=== PATIENT | male | born 1940 | race Caucasian/White ===

== ENCOUNTER → 2017-09-06 | Day surgery (SDC) | payer MEDICARE, BC, SELFPAY | END | disposition home or self-care (01) | PROVIDERS: Family Provider Internal Medicine; PCP Internal Medicine; Visit Provider Ophthalmology | DX: H25.11 Age-related nuclear cataract, right eye (principal) | CPT/HCPCS: J2250; J3010 ==

== ENCOUNTER → 2017-10-25 09:53 | Outpatient (CLI) | payer MEDICARE, BC, SELFPAY ==
[2017-10-25 10:52] LABS: Alanine Aminotransferase 42 IU/L (21-72); Albumin 4.1 g/dL (3.5-5.0); Albumin Globulin Ratio 1.6 (1.0-2.8); Alkaline Phosphatase 81 U/L (38-126); Aspartate Aminotransferase 34 IU/L (17-59); BUN Creatinine Ratio 22.9 (6-22); Bilirubin Total 0.9 mg/dL (0.2-1.3); Blood Urea Nitrogen 16 mg/dL (9-20); Calcium 8.9 mg/dL (8.4-10.2); Carbon Dioxide 26 mmol/L (22-32); Chloride 104 mmol/L (98-107); Cholesterol 133 mg/dL (140-199); Estimated Glomerular Filt Rate > 60.0 mL/min (>60); Globulin 2.5 g/dL (1.7-4.1); Glucose 105 mg/dL (80-110); HDL Cholesterol 49 mg/dL (40-60); HEMOLYSIS 39 (0-50); LDL Cholesterol Calculated 71 mg/dL (<100); Potassium 4.2 mmol/L (3.4-5.1); Sodium 140 mmol/L (137-145); Total Protein 6.6 g/dL (6.3-8.2); Triglycerides 65 mg/dL (35-150)
== END ==
PROVIDERS: PCP Internal Medicine; Visit Provider Internal Medicine Cardiovascular Disease
DX: I25.10 Atherosclerotic heart disease of native coronary artery without angina pectoris (principal)
CPT/HCPCS: 36415; 80053; 80061

== ENCOUNTER 2018-01-13 10:39 | Emergency (ER) | payer MEDICARE, BC, SELFPAY ==
[2018-01-13 10:56] VITALS: BP 151/82; PULSE 60; RESP 15; TEMP 36.7; O2SAT 100; BMI 27.0
--- NOTE | 2018-01-13 11:07 | DI.RAD.S_ITS ---
PROCEDURE: XR CHEST 1V INDICATIONS: chest pain TECHNIQUE: One view of the chest was acquired. COMPARISON: [facility], , CHEST 1 VIEW, 06/23/2017, 14:42. FINDINGS: Surgical changes and devices: None. Lungs and pleura: No pleural effusions or pneumothorax. No focal airspace opacities. Mediastinum: Mediastinal contours appear normal. Heart size is normal. Bones and chest wall: No suspicious bony lesions. Overlying soft tissues appear unremarkable. IMPRESSION: No acute cardiopulmonary disease. Dictated by: Nelson Gould M.D. on 01/13/2018 at 11:44 Approved by: Nelson Gould M.D. on 01/13/2018 at 11:45
[2018-01-13 11:18] LABS: Add Manual Diff / Slide Review NO; Basophils Percent Auto 0.7 % (0-2); Hematocrit 45.4 % (41-53); Hemoglobin 15.6 g/dL (13.5-17.5); Lymphocytes Percent Auto 17.3 % (25-40); Mean Corpuscular HGB Conc 34.4 % (30-36); Mean Corpuscular Hemoglobin 31.5 PG (26-34); Mean Corpuscular Volume 91.3 fL (80-100); Monocytes Percent Auto 10.7 % (3-14); Neutrophils Absolute Auto 3600 /uL (3000-5900); Neutrophils Percent Auto 70.3 % (50-75); Platelet Count 222 X10^3/uL (150-400); Red Blood Cell Count 4.98 X10^6/uL (4.5-5.9); Red Cell Distribution Width 13.4 % (11.6-14.8); White Blood Cell Count 5.1 X10^3/uL (4.5-11.0)
[2018-01-13 11:22] LABS: Prothrombin Time 10.8 SECONDS (10.1-12.7)
[2018-01-13 11:25] LABS: PTT Partial Thromboplastin Tim 27 SECONDS (26.4-36.2)
[2018-01-13 11:29] LABS: Alanine Aminotransferase 39 IU/L (21-72); Albumin 4.3 g/dL (3.5-5.0); Albumin Globulin Ratio 1.8 (1.0-2.8); Alkaline Phosphatase 84 U/L (38-126); Aspartate Aminotransferase 64 IU/L (17-59); BUN Creatinine Ratio 15.6 (6-22); Blood Urea Nitrogen 14 mg/dL (9-20); Calcium 9.2 mg/dL (8.4-10.2); Carbon Dioxide 30 mmol/L (22-32); Chloride 105 mmol/L (98-107); Creatine Kinase 82 U/L (55-170); Estimated Glomerular Filt Rate > 60.0 mL/min (>60); Globulin 2.4 g/dL (1.7-4.1); Glucose 108 mg/dL (80-110); HEMOLYSIS 24 (0-50); Lipase 131 U/L (23-300); Potassium 4.1 mmol/L (3.4-5.1); Sodium 142 mmol/L (137-145); Total Protein 6.7 g/dL (6.3-8.2)
--- NOTE | 2018-01-13 11:29 | ED.CHESTPAIN ---
HPI - Chest Pain General Chief Complaint: Chest Pain Stated Complaint: CHEST PAINS, TIGHTNESS, LIGHT HEADED Time Seen by Provider: 01/13/18 10:58 Source: patient Mode of arrival: ambulatory Limitations: no limitations History of Present Illness HPI narrative: Patient is a 77-year-old male presents with right-sided chest pain ongoing for a number of weeks. Started once he got Lacey 3 weeks ago. His mostly on the right side sharp burning of comes and goes. Not associated with any exertion. He that now is starting to feel a on his left side as well. He does have a history of a stent. He occasionally gets short of breath and lightheaded when the pain comes. Comes about 6 times a day. Not passed out. Does not currently have pain. MD complaint: chest pain Onset (ago): week(s) (3-4) Related Data Home Medications Medication Instructions Recorded Confirmed acetaminophen [Tylenol Extra 500 mg PO Q6HP PRN #0 12/28/16 Strength] aspirin 81 mg PO QPM #0 12/28/16 ibuprofen 200 mg PO Q6HP PRN #0 12/28/16 simvastatin [Zocor] 20 mg PO HS #0 12/28/16 cholecalciferol (vitamin D3) 2,000 unit PO QDAY #0 06/23/17 [Vitamin D3] coenzyme Q10 [Co Q-10] 100 mg PO QDAY #0 06/23/17 cyanocobalamin (vitamin B-12) 5,000 mcg PO QDAY #0 06/23/17 diphenhydramine HCl [Benadryl 25 mg PO PRN PRN #0 06/23/17 Allergy] multivitamin [Multiple Vitamins] 1 tab PO QDAY #0 06/23/17 atorvastatin [Lipitor] 80 mg PO QDAY #0 09/06/17 clopidogrel 75 mg PO QDAY #0 09/06/17 10/04/17 loratadine [Claritin Liqui-Gel] 10 mg PO QDAYP PRN #0 09/06/17 metoprolol tartrate 12.5 mg PO BID #0 09/06/17 vitamin B complex [B 1 tab PO QDAY #0 09/06/17 10/04/17 Complex-Vitamin B12] Allergies Allergy/AdvReac Type Severity Reaction Status Date / Time No Known Allergies Allergy Verified 01/13/18 10:56 Review of Systems Review of Systems All systems reviewed & are unremarkable except as noted in HPI and below Constitutional Denies chills, Denies fever(s), Denies lethargy and Denies weakness Cardiovascular Reports as per HPI Respiratory Reports as per HPI Gastrointestinal Gastrointestinal: Denies abdominal pain, Denies change in bowel habits, Denies diarrhea, Denies nausea and Denies vomiting Musculoskeletal Denies back pain, Denies muscle weakness, Denies numbness and Denies tingling Integumentary/Breasts Denies pruritus, Denies erythema, Denies rash and Denies wounds Neurologic Denies numbness, Denies tingling and Denies weakness PFSH Medical History Coronary artery disease (Acute) Hyperlipidemia (Acute) Hypertension (Acute) Social History household members: spouse Exam Initial Vital Signs Initial Vital Signs: Vital Signs Temperature 98.1 F 01/13/18 10:56 Pulse Rate 60 01/13/18 10:56 Respiratory Rate 15 01/13/18 10:56 Blood Pressure 151/82 H 01/13/18 10:56 Pulse Oximetry 100 01/13/18 10:56 GENERAL: Well-appearing, well-nourished and in no acute distress. HEENT: Head atraumatic,EOMI, pupils reactive, face symmetric next CARDIOVASCULAR: Regular rate and rhythm without murmurs, rubs or gallops. RESPIRATORY: Breath sounds equal bilaterally, no wheezes rales or rhonchi. ABDOMEN: Soft, nontender. Normoactive bowel sounds all 4 quadrants. No guarding or rebound. EXTREMITIES: Normal range of motion, no clubbing or edema. Neurovascularly intact NEUROLOGICAL: Alert and oriented x4.Normal gait and speech. Cranial nerves II through XII grossly intact. Good [id number], good [id number], strength equal bilaterally, no dysarthria or aphasia, sensation in tact to soft touch bilaterally, no visual changes, no facial droop SKIN: Warm, dry, no laceration, no petechiae, no rashes or lesions. Course Orders Ordered: ED Orders 01/13/18 11:00 Complete Blood Count AUTO DIFF Stat Comprehensive Metabolic Panel Stat D Dimer Stat Lipase Stat Partial Thromboplastin Time Stat Prothrombin Time INR Stat Troponin & CK Cardiac Panel Stat 01/13/18 11:07 XR chest 1V Stat EKG-12 Lead Stat Discontinued Medications Aspirin (Aspirin Chew) 324 mg PO NOW ONE Stop: 01/13/18 11:08 Last Admin: 01/13/18 11:50 Dose: 324 mg Sodium Chloride (Normal Saline 0.9%) 1,000 mls @ 150 mls/hr IV CONT RYLIE Last Admin: 01/13/18 11:50 Dose: 150 mls/hr Sodium Chloride (Normal Saline 0.9%) 1,000 mls @ 150 mls/hr IV CONT RYLIE Vital Signs - 8 hr 01/13/18 13:00 01/13/18 13:35 01/13/18 13:58 Temperature 97.6 F Pulse Rate 55 L 55 L 58 L Respiratory Rate 10 L 11 L 17 Blood Pressure 126/65 Blood Pressure [Left Arm] 136/64 126/65 Pulse Oximetry 100 100 99 MDM - Chest Pain Lab Data Attestation: I reviewed the patient's lab results. Result diagrams: 01/13/18 11:00 01/13/18 11:00 Lab Results 01/13/18 01/13/18 01/13/18 Range/Units 11:00 11:00 11:00 WBC 5.1 (4.5-11.0) X10^3/uL RBC 4.98 (4.5-5.9) X10^6/uL Hgb 15.6 (13.5-17.5) g/dL Hct 45.4 (41-53) % MCV 91.3 (80-100) fL MCH 31.5 (26-34) PG MCHC 34.4 (30-36) % RDW 13.4 (11.6-14.8) % Plt Count 222 (150-400) X10^3/uL Neut % (Auto) 70.3 (50-75) % Lymph % (Auto) 17.3 L (25-40) % [place] % (Auto) 10.7 (3-14) % Eos % (Auto) 1.0 L (2-4) % Baso % (Auto) 0.7 (0-2) % Neut # (Auto) 3600 (2267-0460) /uL PT 10.8 (10.1-12.7) SECONDS INR 1.0 (0.9-1.3) APTT 27 (26.4-36.2) SECONDS D-Dimer (<230) ng/mL Sodium 142 (137-145) mmol/L Potassium 4.1 (3.4-5.1) mmol/L Chloride 105 (98-107) mmol/L Carbon Dioxide 30 (22-32) mmol/L BUN 14 (9-20) mg/dL Creatinine 0.90 (0.66-1.25) mg/dL Estimated GFR > 60.0 (>60) mL/min BUN/Creatinine Ratio 15.6 (6-22) Glucose 108 (80-110) mg/dL Calcium 9.2 (8.4-10.2) mg/dL Total Bilirubin 1.0 (0.2-1.3) mg/dL AST 64 H (17-59) IU/L ALT 39 (21-72) IU/L Alkaline Phosphatase 84 (38-126) U/L Total Creatine Kinase 82 (55-170) U/L Troponin I < 0.012 (0.01-0.034) ng/mL Total Protein 6.7 (6.3-8.2) g/dL Albumin 4.3 (3.5-5.0) g/dL Globulin 2.4 (1.7-4.1) g/dL Albumin/Globulin Ratio 1.8 (1.0-2.8) Lipase 131 (23-300) U/L 01/13/18 Range/Units 11:00 WBC (4.5-11.0) X10^3/uL RBC (4.5-5.9) X10^6/uL Hgb (13.5-17.5) g/dL Hct (41-53) % MCV (80-100) fL MCH (26-34) PG MCHC (30-36) % RDW (11.6-14.8) % Plt Count (150-400) X10^3/uL Neut % (Auto) (50-75) % Lymph % (Auto) (25-40) % [place] % (Auto) (3-14) % Eos % (Auto) (2-4) % Baso % (Auto) (0-2) % Neut # (Auto) (9359-9234) /uL PT (10.1-12.7) SECONDS INR (0.9-1.3) APTT (26.4-36.2) SECONDS D-Dimer 257 H (<230) ng/mL Sodium (137-145) mmol/L Potassium (3.4-5.1) mmol/L Chloride (98-107) mmol/L Carbon Dioxide (22-32) mmol/L BUN (9-20) mg/dL Creatinine (0.66-1.25) mg/dL Estimated GFR (>60) mL/min BUN/Creatinine Ratio (6-22) Glucose (80-110) mg/dL Calcium (8.4-10.2) mg/dL Total Bilirubin (0.2-1.3) mg/dL AST (17-59) IU/L ALT (21-72) IU/L Alkaline Phosphatase (38-126) U/L Total Creatine Kinase (55-170) U/L Troponin I (0.01-0.034) ng/mL Total Protein (6.3-8.2) g/dL Albumin (3.5-5.0) g/dL Globulin (1.7-4.1) g/dL Albumin/Globulin Ratio (1.0-2.8) Lipase (23-300) U/L Imaging Data Chest x-ray: Radiologist's impression: PROCEDURE: XR CHEST 1V INDICATIONS: chest pain TECHNIQUE: One view of the chest was acquired. COMPARISON: [facility], CHEST 1 VIEW, 06/23/2017, 14:42. FINDINGS: Surgical changes and devices: None. Lungs and pleura: No pleural effusions or pneumothorax. No focal airspace opacities. Mediastinum: Mediastinal contours appear normal. Heart size is normal. Bones and chest wall: No suspicious bony lesions. Overlying soft tissues appear unremarkable. IMPRESSION: No acute cardiopulmonary disease. Dictated by: Nelson Gould M.D. on 01/13/2018 at 11:44 ECG Data Interpretation: Normal sinus rhythm his rate [address] changes similar to previous EKG in June 2017 MDM Narrative Medical decision making narrative: I discussed case with patient's own gm video. Patient has been having ongoing pain off and on for the last month. Questionable if it is cardiac at on the right side on nonexertional or radiating. Troponin negative. Patient's D-dimer is also negative he is not hypoxic. Although he had a airplane ride I do not believe him to have a PE. Patient with follow-up with his gm video. Discharge Plan Departure Patient Disposition: Home Clinical Impression: Atypical chest pain Discharge Date/Time: 01/13/18 14:00 Interventions: ED Discharge Assessment Last Done: 01/13/18 13:58 Instructions: DI for Atypical Chest Pain Activity Restrictions/Additional Instructions: *You have been diagnosed with atypical chest *What to do: Need to follow up with her gm video for possible further evaluation and testing *Continue to take medications as directed *Follow up with your primary care provider in 2-3 days, follow up with your gm video in 1-2 weeks *Return to ER if you should have any new, worsening or concerning symptoms Prescriptions: No Action aspirin 81 MG tablet,delayed release (DR/EC) 81 mg PO QPM Qty: 0 RF: 0 simvastatin [Zocor] 20 MG tablet 20 mg PO HS Qty: 0 RF: 0 ibuprofen 200 MG capsule 200 mg PO Q6HP PRNQty: 0 RF: 0 acetaminophen [Tylenol Extra Strength] 500 MG tablet 500 mg PO Q6HP PRNQty: 0 RF: 0 diphenhydramine HCl [Benadryl Allergy] 25 MG tablet 25 mg PO PRN PRNQty: 0 RF: 0 coenzyme Q10 [Co Q-10] 100 MG capsule 100 mg PO QDAY Qty: 0 RF: 0 cyanocobalamin (vitamin B-12) 5,000 MCG tablet,disintegrating 5,000 mcg PO QDAY Qty: 0 RF: 0 multivitamin [Multiple Vitamins] 1 EACH tablet 1 tab PO QDAY Qty: 0 RF: 0 cholecalciferol (vitamin D3) [Vitamin D3] 2,000 UNIT capsule 2,000 unit PO QDAY Qty: 0 RF: 0 metoprolol tartrate 25 MG tablet 12.5 mg PO BID Qty: 0 RF: 0 atorvastatin [Lipitor] 80 MG tablet 80 mg PO QDAY Qty: 0 RF: 0 clopidogrel 75 MG tablet 75 mg PO QDAY Qty: 0 RF: 0 loratadine [Claritin Liqui-Gel] 10 MG capsule 10 mg PO QDAYP PRNQty: 0 RF: 0 vitamin B complex [B Complex-Vitamin B12] 1 EACH tablet 1 tab PO QDAY Qty: 0 RF: 0
[2018-01-13 11:41] LABS: Troponin I < 0.012 ng/mL (0.01-0.034)
--- NOTE | 2018-01-13 11:41 | ED_ITS ---
HPI - Chest Pain General Chief Complaint: Chest Pain Stated Complaint: CHEST PAINS, TIGHTNESS, LIGHT HEADED Time Seen by Provider: 01/13/18 10:58 Source: patient Mode of arrival: ambulatory Limitations: no limitations History of Present Illness HPI narrative: Patient is a 77-year-old male presents with right-sided chest pain ongoing for a number of weeks. Started once he got Lacey 3 weeks ago. His mostly on the right side sharp burning of comes and goes. Not associated with any exertion. He that now is starting to feel a on his left side as well. He does have a history of a stent. He occasionally gets short of breath and lightheaded when the pain comes. Comes about 6 times a day. Not passed out. Does not currently have pain. MD complaint: chest pain Onset (ago): week(s) (3-4) Related Data Home Medications Medication Instructions Recorded Confirmed acetaminophen [Tylenol Extra 500 mg PO Q6HP PRN #0 12/28/16 Strength] aspirin 81 mg PO QPM #0 12/28/16 ibuprofen 200 mg PO Q6HP PRN #0 12/28/16 simvastatin [Zocor] 20 mg PO HS #0 12/28/16 cholecalciferol (vitamin D3) 2,000 unit PO QDAY #0 06/23/17 [Vitamin D3] coenzyme Q10 [Co Q-10] 100 mg PO QDAY #0 06/23/17 cyanocobalamin (vitamin B-12) 5,000 mcg PO QDAY #0 06/23/17 diphenhydramine HCl [Benadryl 25 mg PO PRN PRN #0 06/23/17 Allergy] multivitamin [Multiple Vitamins] 1 tab PO QDAY #0 06/23/17 atorvastatin [Lipitor] 80 mg PO QDAY #0 09/06/17 clopidogrel 75 mg PO QDAY #0 09/06/17 10/04/17 loratadine [Claritin Liqui-Gel] 10 mg PO QDAYP PRN #0 09/06/17 metoprolol tartrate 12.5 mg PO BID #0 09/06/17 vitamin B complex [B 1 tab PO QDAY #0 09/06/17 10/04/17 Complex-Vitamin B12] Allergies Allergy/AdvReac Type Severity Reaction Status Date / Time No Known Allergies Allergy Verified 01/13/18 10:56 Review of Systems Review of Systems All systems reviewed & are unremarkable except as noted in HPI and below Constitutional Denies chills, Denies fever(s), Denies lethargy and Denies weakness Cardiovascular Reports as per HPI Respiratory Reports as per HPI Gastrointestinal Gastrointestinal: Denies abdominal pain, Denies change in bowel habits, Denies diarrhea, Denies nausea and Denies vomiting Musculoskeletal Denies back pain, Denies muscle weakness, Denies numbness and Denies tingling Integumentary/Breasts Denies pruritus, Denies erythema, Denies rash and Denies wounds Neurologic Denies numbness, Denies tingling and Denies weakness PFSH Medical History Coronary artery disease (Acute) Hyperlipidemia (Acute) Hypertension (Acute) Social History household members: spouse Exam Initial Vital Signs Initial Vital Signs: Vital Signs Temperature 98.1 F 01/13/18 10:56 Pulse Rate 60 01/13/18 10:56 Respiratory Rate 15 01/13/18 10:56 Blood Pressure 151/82 H 01/13/18 10:56 Pulse Oximetry 100 01/13/18 10:56 GENERAL: Well-appearing, well-nourished and in no acute distress. HEENT: Head atraumatic,EOMI, pupils reactive, face symmetric next CARDIOVASCULAR: Regular rate and rhythm without murmurs, rubs or gallops. RESPIRATORY: Breath sounds equal bilaterally, no wheezes rales or rhonchi. ABDOMEN: Soft, nontender. Normoactive bowel sounds all 4 quadrants. No guarding or rebound. EXTREMITIES: Normal range of motion, no clubbing or edema. Neurovascularly intact NEUROLOGICAL: Alert and oriented x4.Normal gait and speech. Cranial nerves II through XII grossly intact. Good jdiwoo-ar-eius, good spvj-md-[id number], strength equal bilaterally, no dysarthria or aphasia, sensation in tact to soft touch bilaterally, no visual changes, no facial droop SKIN: Warm, dry, no laceration, no petechiae, no rashes or lesions. Course Orders Ordered: ED Orders 01/13/18 11:00 Complete Blood Count AUTO DIFF Stat Comprehensive Metabolic Panel Stat D Dimer Stat Lipase Stat Partial Thromboplastin Time Stat Prothrombin Time INR Stat Troponin & CK Cardiac Panel Stat 01/13/18 11:07 XR chest 1V Stat EKG-12 Lead Stat Discontinued Medications Aspirin (Aspirin Chew) 324 mg PO NOW ONE Stop: 01/13/18 11:08 Last Admin: 01/13/18 11:50 Dose: 324 mg Sodium Chloride (Normal Saline 0.9%) 1,000 mls @ 150 mls/hr IV CONT RYLIE Last Admin: 01/13/18 11:50 Dose: 150 mls/hr Sodium Chloride (Normal Saline 0.9%) 1,000 mls @ 150 mls/hr IV CONT RYLIE Vital Signs - 8 hr 01/13/18 13:00 01/13/18 13:35 01/13/18 13:58 Temperature 97.6 F Pulse Rate 55 L 55 L 58 L Respiratory Rate 10 L 11 L 17 Blood Pressure 126/65 Blood Pressure [Left Arm] 136/64 126/65 Pulse Oximetry 100 100 99 MDM - Chest Pain Lab Data Attestation: I reviewed the patient's lab results. Result diagrams: 01/13/18 11:00 01/13/18 11:00 Lab Results 01/13/18 01/13/18 01/13/18 Range/Units 11:00 11:00 11:00 WBC 5.1 (4.5-11.0) X10^3/uL RBC 4.98 (4.5-5.9) X10^6/uL Hgb 15.6 (13.5-17.5) g/dL Hct 45.4 (41-53) % MCV 91.3 (80-100) fL MCH 31.5 (26-34) PG MCHC 34.4 (30-36) % RDW 13.4 (11.6-14.8) % Plt Count 222 (150-400) X10^3/uL Neut % (Auto) 70.3 (50-75) % Lymph % (Auto) 17.3 L (25-40) % [place] % (Auto) 10.7 (3-14) % Eos % (Auto) 1.0 L (2-4) % Baso % (Auto) 0.7 (0-2) % Neut # (Auto) 3600 (6223-9398) /uL PT 10.8 (10.1-12.7) SECONDS INR 1.0 (0.9-1.3) APTT 27 (26.4-36.2) SECONDS D-Dimer (<230) ng/mL Sodium 142 (137-145) mmol/L Potassium 4.1 (3.4-5.1) mmol/L Chloride 105 (98-107) mmol/L Carbon Dioxide 30 (22-32) mmol/L BUN 14 (9-20) mg/dL Creatinine 0.90 (0.66-1.25) mg/dL Estimated GFR > 60.0 (>60) mL/min BUN/Creatinine Ratio 15.6 (6-22) Glucose 108 (80-110) mg/dL Calcium 9.2 (8.4-10.2) mg/dL Total Bilirubin 1.0 (0.2-1.3) mg/dL AST 64 H (17-59) IU/L ALT 39 (21-72) IU/L Alkaline Phosphatase 84 (38-126) U/L Total Creatine Kinase 82 (55-170) U/L Troponin I < 0.012 (0.01-0.034) ng/mL Total Protein 6.7 (6.3-8.2) g/dL Albumin 4.3 (3.5-5.0) g/dL Globulin 2.4 (1.7-4.1) g/dL Albumin/Globulin Ratio 1.8 (1.0-2.8) Lipase 131 (23-300) U/L 01/13/18 Range/Units 11:00 WBC (4.5-11.0) X10^3/uL RBC (4.5-5.9) X10^6/uL Hgb (13.5-17.5) g/dL Hct (41-53) % MCV (80-100) fL MCH (26-34) PG MCHC (30-36) % RDW (11.6-14.8) % Plt Count (150-400) X10^3/uL Neut % (Auto) (50-75) % Lymph % (Auto) (25-40) % [place] % (Auto) (3-14) % Eos % (Auto) (2-4) % Baso % (Auto) (0-2) % Neut # (Auto) (7315-3387) /uL PT (10.1-12.7) SECONDS INR (0.9-1.3) APTT (26.4-36.2) SECONDS D-Dimer 257 H (<230) ng/mL Sodium (137-145) mmol/L Potassium (3.4-5.1) mmol/L Chloride (98-107) mmol/L Carbon Dioxide (22-32) mmol/L BUN (9-20) mg/dL Creatinine (0.66-1.25) mg/dL Estimated GFR (>60) mL/min BUN/Creatinine Ratio (6-22) Glucose (80-110) mg/dL Calcium (8.4-10.2) mg/dL Total Bilirubin (0.2-1.3) mg/dL AST (17-59) IU/L ALT (21-72) IU/L Alkaline Phosphatase (38-126) U/L Total Creatine Kinase (55-170) U/L Troponin I (0.01-0.034) ng/mL Total Protein (6.3-8.2) g/dL Albumin (3.5-5.0) g/dL Globulin (1.7-4.1) g/dL Albumin/Globulin Ratio (1.0-2.8) Lipase (23-300) U/L Imaging Data Chest x-ray: Radiologist's impression: PROCEDURE: XR CHEST 1V INDICATIONS: chest pain TECHNIQUE: One view of the chest was acquired. COMPARISON: [facility], CHEST 1 VIEW, 06/23/2017, 14:42. FINDINGS: Surgical changes and devices: None. Lungs and pleura: No pleural effusions or pneumothorax. No focal airspace opacities. Mediastinum: Mediastinal contours appear normal. Heart size is normal. Bones and chest wall: No suspicious bony lesions. Overlying soft tissues appear unremarkable. IMPRESSION: No acute cardiopulmonary disease. Dictated by: Nelson Gould M.D. on 01/13/2018 at 11:44 ECG Data Interpretation: Normal sinus rhythm his rate [address] changes similar to previous EKG in June 2017 MDM Narrative Medical decision making narrative: I discussed case with patient's own market consultant. Patient has been having ongoing pain off and on for the last month. Questionable if it is cardiac at on the right side on nonexertional or radiating. Troponin negative. Patient's D-dimer is also negative he is not hypoxic. Although he had a airplane ride I do not believe him to have a PE. Patient with follow-up with his market consultant. Discharge Plan Departure Patient Disposition: Home Clinical Impression: Atypical chest pain Discharge Date/Time: 01/13/18 14:00 Interventions: ED Discharge Assessment Last Done: 01/13/18 13:58 Instructions: DI for Atypical Chest Pain Activity Restrictions/Additional Instructions: *You have been diagnosed with atypical chest *What to do: Need to follow up with her market consultant for possible further evaluation and testing *Continue to take medications as directed *Follow up with your primary care provider in 2-3 days, follow up with your market consultant in 1-2 weeks *Return to ER if you should have any new, worsening or concerning symptoms Prescriptions: No Action aspirin 81 MG tablet,delayed release (DR/EC) 81 mg PO QPM Qty: 0 RF: 0 simvastatin [Zocor] 20 MG tablet 20 mg PO HS Qty: 0 RF: 0 ibuprofen 200 MG capsule 200 mg PO Q6HP PRNQty: 0 RF: 0 acetaminophen [Tylenol Extra Strength] 500 MG tablet 500 mg PO Q6HP PRNQty: 0 RF: 0 diphenhydramine HCl [Benadryl Allergy] 25 MG tablet 25 mg PO PRN PRNQty: 0 RF: 0 coenzyme Q10 [Co Q-10] 100 MG capsule 100 mg PO QDAY Qty: 0 RF: 0 cyanocobalamin (vitamin B-12) 5,000 MCG tablet,disintegrating 5,000 mcg PO QDAY Qty: 0 RF: 0 multivitamin [Multiple Vitamins] 1 EACH tablet 1 tab PO QDAY Qty: 0 RF: 0 cholecalciferol (vitamin D3) [Vitamin D3] 2,000 UNIT capsule 2,000 unit PO QDAY Qty: 0 RF: 0 metoprolol tartrate 25 MG tablet 12.5 mg PO BID Qty: 0 RF: 0 atorvastatin [Lipitor] 80 MG tablet 80 mg PO QDAY Qty: 0 RF: 0 clopidogrel 75 MG tablet 75 mg PO QDAY Qty: 0 RF: 0 loratadine [Claritin Liqui-Gel] 10 MG capsule 10 mg PO QDAYP PRNQty: 0 RF: 0 vitamin B complex [B Complex-Vitamin B12] 1 EACH tablet 1 tab PO QDAY Qty: 0 RF: 0
[2018-01-13 11:44] LABS: D Dimer 257 ng/mL (<230)
[2018-01-13] MEDS: ASPIRIN 81 MG TAB 324 MG PO (11:50)
[2018-01-13] MEDS: SODIUM CHLORIDE 0.9% 1,000 ML 150 ML IV (11:50)
[2018-01-13 13:00] VITALS: BP 136/64; PULSE 55; RESP 10; O2SAT 100
[2018-01-13 13:35] VITALS: BP 126/65; PULSE 55; RESP 11; O2SAT 100
[2018-01-13 13:58] VITALS: BP 126/65; PULSE 58; RESP 17; TEMP 36.4; O2SAT 99
--- NOTE | 2018-02-05 01:21 | PC.NURSE ---
IV fluids stopped at discharge
== END 2018-01-13 14:00 | disposition home or self-care (01) ==
PROVIDERS: Emergency Provider Emergency Medicine; Family Provider Internal Medicine Cardiovascular Disease; PCP Internal Medicine
DX: R07.89 Other chest pain (principal)
CPT/HCPCS: 36591; 71045; 80053; 82550; 82553; 83690; 84484; 85025; 85379; 85610; 85730; 93005; 93010; 96360; 96361; 99282; 99285

== ENCOUNTER 2018-06-07 10:00 | Outpatient (RCR) | payer MEDICARE, BC, SELFPAY | END 2018-06-08 08:59 | LOC: CAR 10:00 | PROVIDERS: Family Provider Internal Medicine Cardiovascular Disease; PCP Internal Medicine; Visit Provider Internal Medicine Cardiovascular Disease | DX: I20.9 Angina pectoris, unspecified (principal) | CPT/HCPCS: 93798 ==

== ENCOUNTER → 2019-02-28 18:52 | Outpatient (ROUT) | payer MEDICARE, BC, SELFPAY ==
[2019-02-28 19:17] LABS: HEMOLYSIS < 15 (0-50)
[2019-02-28 19:22] LABS: Aspartate Aminotransferase 31 IU/L (17-59); BUN Creatinine Ratio 22.5 (6-22); Blood Urea Nitrogen 18 mg/dL (9-20); Calcium 9.5 mg/dL (8.4-10.2); Carbon Dioxide 26 mmol/L (22-32); Chloride 104 mmol/L (98-107); Cholesterol 126 mg/dL (140-199); Estimated Glomerular Filt Rate > 60.0 mL/min (>60); Glucose 100 mg/dL (80-110); HDL Cholesterol 58 mg/dL (40-60); LDL Cholesterol Calculated 55 mg/dL (<100); Potassium 4.4 mmol/L (3.4-5.1); Sodium 137 mmol/L (137-145); Triglycerides 63 mg/dL (35-150)
[2019-03-01 16:16] LABS: Prostate Specific Antigen 0.819 ng/mL (0.10-4.00)
== END ==
PROVIDERS: Family Provider Internal Medicine Cardiovascular Disease; PCP Internal Medicine; Visit Provider Internal Medicine
DX: I25.10 Atherosclerotic heart disease of native coronary artery without angina pectoris (principal); N40.0 Benign prostatic hyperplasia without lower urinary tract symptoms; E78.2 Mixed hyperlipidemia
CPT/HCPCS: 80048; 80061; 84153; 84450

== ENCOUNTER → 2019-12-08 13:34 | Outpatient (CLI) | payer MEDICARE, BC, SELFPAY ==
[2019-12-11 06:48] LABS: COVID19 Sendout Not Detected (Not Detect)
== END ==
PROVIDERS: Family Provider Internal Medicine Cardiovascular Disease; PCP Internal Medicine; Visit Provider Physician Assistant
DX: Z01.818 Encounter for other preprocedural examination (principal)
CPT/HCPCS: 87635

== ENCOUNTER 2019-12-11 10:29 | Day surgery (SDC) | payer MEDICARE, BC, SELFPAY ==
[2019-12-10 12:33] VITALS: BMI 27.6
[2019-12-11] VITALS (9 sets, daily range): BP systolic 140–157; BP diastolic 75–84; PULSE 16–84; RESP 10–67; TEMP 36.1–36.7; O2SAT 94–98; BMI 26.8
[2019-12-11] MEDS: LACTATED RINGERS 1,000 ML 100 ML IV ×2 (11:04→14:58)
--- NOTE | 2019-12-11 13:32 | PM.HP.1 ---
History of Present Illness History of Present Illness Date Patient Seen: 12/11/19 Time Patient Seen: 13:32 Chief complaint: Lap bilateral hernia Narrative: A 79-year-old male with a remote history of a bilateral open inguinal hernia repair presents for laparoscopic preperitoneal repair of recurrence bilateral inguinal hernias. Please see his H& P from July 2019 for further detail has been no interval changes in his health. Patient History Medical History Aortic stenosis (Acute) Coronary artery disease (Acute) Hx of coronary angiogram (Acute) Hx of fracture of tibia (Acute) Hyperlipidemia (Acute) Hypertension (Acute) Surgical History History of tonsillectomy and adenoidectomy (Acute) Hx of appendectomy (Acute) Hx of cataract surgery (Acute 10/04/17) Hx of heart artery stent (Acute 06/30/17) Hx of hernia repair (Acute 12/2016) Family & Social History Family History Father Heart disease Brother Heart disease Stroke Social History: household members spouse Tobacco & Substance use: Smoking Status Never smoker alcohol intake current alcohol intake frequency 0-2 drinks per day Substance Use Type does not use Meds Home Medications and Allergies Home Medications Medication Instructions Recorded Confirmed Type acetaminophen [Tylenol Extra 500 mg PO Q6HP PRN #0 12/28/16 12/11/19 History Strength] aspirin 81 mg PO QPM #0 12/28/16 12/11/19 History multivitamin [Multiple Vitamins] 1 tab PO QDAY #0 06/23/17 12/11/19 History atorvastatin [Lipitor] 80 mg PO QDAY #0 09/06/17 12/11/19 History clopidogrel 75 mg PO QDAY #0 09/06/17 12/11/19 History loratadine [Claritin Liqui-Gel] 10 mg PO QDAYP PRN #0 09/06/17 12/11/19 History metoprolol tartrate 12.5 mg PO BID #0 09/06/17 12/11/19 History isosorbide mononitrate 30 mg 30 mg PO DAILY 03/28/19 12/11/19 History tablet,extended release 24 hr nitroglycerin 0.4 mg sublingual 0.4 mg SL Q5M PRN 03/28/19 12/11/19 History tablet Allergies Allergy/AdvReac Type Severity Reaction Status Date / Time No Known Allergies Allergy Verified 12/11/19 11:07 Review of Systems Review of Systems Narrative: A 10 point review of systems is negative except as noted in the HPI Exam Vital Signs (past 8 hours): - 12/11/19 11:06 Temperature 98.0 F Pulse Rate 16 L Respiratory Rate 67 H Blood Pressure 143/77 H Pulse Oximetry 98 Oxygen Delivery Method Room Air Narrative Exam Narrative: General-no acute distress, well nourished HEENT-moist mucous membranes, no scleral icterus Neck-supple, no lymphadenopathy Chest- non labored respirations, clear to auscultation bilaterally Cardiac-regular rate no peripheral edema Abdomen-soft, bilateral reducible inguinal hernia Extremities-warm, well perfused Neurological-alert and oriented, no focal deficits Assessment & Plan Assessment and plan (1) Bilateral inguinal hernia (BIH): Status: Acute Assessment & Plan narrative: 79-year-old man with a previous open bilateral inguinal hernia repair presents for repair of recurrent bilateral inguinal hernias. The technical details of the procedure were discussed with him the operative risks including bleeding infection recurrence testicular ischemia damage to surrounding structures were discussed. His questions have been answered he is in agreement with this plan will proceed to the operating room. COVID-19 COVID-19 status: Negative
[2019-12-11] MEDS: CEFAZOLIN 2 GM/100 ML FROZ.PIGGY IV (13:51)
--- NOTE | 2019-12-11 14:13 | SUR.OPER ---
Supine on padded OR bed, head on pillow, safety belt at thigh, bilateral arms padded and tucked at side. . Legs uncrossed. Padded footboard in place. Tape over blanket to secure lower legs.
[2019-12-11] MEDS: BUPIVACAINE 0.25% (PF) VIAL 30 ML INJ (14:29)
--- NOTE | 2019-12-11 15:59 | P.OP_ITS ---
Operative Date/Time/Diagnoses Date of procedure: 12/11/19 Time of procedure: 15:59 Pre-op diagnosis: Recurrent bilateral inguinal hernia Post-op diagnosis: same Procedure & Clinicians Procedure: Laparoscopic repair of recurrent bilateral inguinal hernia Same procedure as scheduled: Yes Indications: 79-year-old male history of open bilateral inguinal hernia repair presents with bilateral recurrence Surgeon: Stefan Schwartz Click Yes if Unassisted: Yes Anesthesia Type: General Operative Notes Findings: Recurrence bilateral direct hernia defects Specimen(s): none sent Estimated Blood Loss (mL): 30 Procedure in detail: The patient was brought to the operating room and placed supine on the table. Bilateral sequential compression devices were applied. General anesthesia was induced and they were intubated with an endotracheal tube. A cotton cath was placed in sterile fashion. They received 2 g of Ancef prior to skin incision. They were prepped and draped in sterile fashion. A time out was performed to ensure the correct patient, procedure and necessary equipment within the operating room. The skin was infiltrated with 0.25% bupivicaine. A 1 cm supra umbilical midline incision was made. The fascia sharply incised and the abdomen entered traumatically. A 10mm balloon port was placed and pneumoperitoneum was established at 15mm Hg. Inspection of the abdomen demonstrated no evidence of injury upon entry. Two 5 mm ports were then placed under direct visualization in the right and left lower quadrant lateral to the rectus muscle. General inspection of the abdomen was made. There was no evidence of injury upon entry. There were bilateral direct inguinal hernia defects. Who I began work with the left side 1st. The peritoneum 4 cm superior to the deep inguinal ring between the medial umbilical ligament and the anterior superior iliac spine was incised. The peritoneal flap was retracted and the preperitoneal tissue was dissected off the flap beginning lateral to the inferior epigastric artery and towards the ASIS and to posterior limit of the psoas muscle to develop the l ateral aspect of the pocket. Next the peritoneum medial to the inferior epigastric was mobilized towards the median umbilical ligament to develop the medial aspect of the pocket and the direct defect was reduced. The space of Retzius was fully dissected such that the Robles's ligament and the pubic symphysis were visible. The peritoneum was mobilized off the the spermatic vessels and vas deferns, there was no evidence of a direct inguinal hernia. A large Bard 3D Max mesh was then placed into the abdomen and positioned such that the myopectineal orifice was completely covered with good overlap on all sides. The mesh was anchored to the pubic tubercle and to Robles?s ligament. The peritoneal flap was then repositioned back to its original position and tacks were used to anchor it in position such that no bowel could herniate into the preperitoneal space. The area was examined for hemostasis. Turning attention to the right side, the peritoneum 4 cm superior to the deep inguinal ring between the medial umbilical ligament and the anterior superior iliac spine was incised. The peritoneal flap was retracted and the preperitoneal tissue was dissected off the flap beginning lateral to the inferior epigastric artery and towards the ASIS and to posterior limit of the psoas muscle to develop the lateral aspect of the pocket. Next the peritoneum medial to the inferior epigastric was mobilized towards the median umbilical ligament to develop the medial aspect of the pocket and the direct defect was reduced. The space of Retzius was fully dissected such that the Robles's ligament and the pubic symphysis were visible. The peritoneum was mobilized off the the spermatic vessels and vas deferns, there was no evidence of a direct inguinal hernia. A large Bard 3D Max mesh was then placed into the abdomen and positioned such that the myopectineal orifice was completely covered with good overlap on all sides. The mesh was anchored to the pubic tubercle and to Robles?s ligament. The peritoneal flap was then repositioned back to its original position and tacks were used to anchor it in position such that no bowel could herniate into the preperitoneal space. The area was examined for hemostasis. The 5mm trocars were removed under direct visualization and pneumoperitoneum was deflated through the umbilical trocar, The fascia at the umbilicus was closed with 0-Vicryl in figure of 8 fashion, skin closed with 4-0 Monocyl followed by Dermabond. The sponge and instrument count at the end of the case was correct. Both testicles were entirely within the scrotum at the end of the case. The patient emerged from anesthsia was extubated and transferred to recovery in stable condition. Complications: none Post-operative Condition: stable Disposition: same day surgery
[2019-12-11] MEDS: ONDANSETRON 4 MG/2 ML INJ IV (16:14)
[2019-12-11] MEDS: OXYCODONE/ACETAMINOPHEN 5/325 TABLET 1 TAB PO (16:14)
--- NOTE | 2019-12-11 16:51 | SUR.PHASEII ---
Patient voided prior to discharge. Denied pain tolerating po. Discharge instructions reviewed with patient and .
== END 2019-12-11 16:52 | disposition home or self-care (01) ==
PROVIDERS: Family Provider Internal Medicine Cardiovascular Disease; PCP Internal Medicine; Referring Provider Surgery; Visit Provider Surgery
PROC: 0YQ64ZZ Repair Left Inguinal Region, Percutaneous Endoscopic Approach (ICD-10-PCS; CPT 49651; principal; 2019-12-11 11:45)
DX: K40.21 Bilateral inguinal hernia, without obstruction or gangrene, recurrent (principal); I25.10 Atherosclerotic heart disease of native coronary artery without angina pectoris; I10 Essential (primary) hypertension; E78.5 Hyperlipidemia, unspecified
CPT/HCPCS: 49651; C1781; J0690; J1100; J2250; J2405; J2704; J3010

== ENCOUNTER → 2020-02-15 09:15 | Outpatient (CLI) | payer MEDICARE, BC, SELFPAY ==
[2020-02-15 12:19] LABS: Hematocrit 41.6 % (41-53); Hemoglobin 13.9 g/dL (13.5-17.5); Mean Corpuscular HGB Conc 33.5 % (30-36); Mean Corpuscular Hemoglobin 31.1 PG (26-34); Mean Corpuscular Volume 92.9 fL (80-100); Platelet Count 217 X10^3/uL (150-400); Red Blood Cell Count 4.48 X10^6/uL (4.5-5.9); Red Cell Distribution Width 13.3 % (11.6-14.8); White Blood Cell Count 4.5 X10^3/uL (4.5-11.0)
[2020-02-15 13:00] LABS: BUN Creatinine Ratio 18.8 (6-22); Blood Urea Nitrogen 15 mg/dL (9-20); Carbon Dioxide 29 mmol/L (22-32); Chloride 103 mmol/L (98-107); Estimated Glomerular Filt Rate > 60.0 mL/min (>60); Glucose 88 mg/dL (80-110); HEMOLYSIS < 15 (0-50); Potassium 4.5 mmol/L (3.4-5.1); Sodium 138 mmol/L (137-145)
== END ==
PROVIDERS: Family Provider Internal Medicine Cardiovascular Disease; PCP Internal Medicine; Referring Provider Internal Medicine Interventional Cardiology; Visit Provider Internal Medicine Interventional Cardiology
DX: I25.10 Atherosclerotic heart disease of native coronary artery without angina pectoris (principal)
CPT/HCPCS: 36415; 80048; 85027

== ENCOUNTER → 2020-02-24 11:13 | Outpatient (CLI) | payer MEDICARE, BC, SELFPAY ==
[2020-02-25 16:57] LABS: COVID19 Sendout Not Detected (Not Detect)
== END ==
PROVIDERS: Family Provider Internal Medicine Cardiovascular Disease; PCP Internal Medicine; Visit Provider Physician Assistant
DX: Z01.812 Encounter for preprocedural laboratory examination (principal)
CPT/HCPCS: 87635

== ENCOUNTER → 2020-04-19 14:41 | Outpatient (CLI) | payer MEDICARE, BC, SELFPAY ==
[2020-04-19 16:29] LABS: COVID19 -Nasal RAPID Negative (Negative)
== END ==
PROVIDERS: Family Provider Internal Medicine Cardiovascular Disease; PCP Internal Medicine; Visit Provider Physician Assistant
DX: Z11.59 Encounter for screening for other viral diseases (principal)
CPT/HCPCS: 87635

== ENCOUNTER → 2020-04-23 12:23 | Outpatient (CLI) | payer MEDICARE, BC, SELFPAY ==
[2020-04-23 13:41] LABS: INR 2.4 (0.9-1.3); Prothrombin Time 27.8 SECONDS (10.1-12.7)
== END ==
PROVIDERS: Family Provider Internal Medicine Cardiovascular Disease; PCP Internal Medicine; Referring Provider Physician Assistant; Visit Provider Physician Assistant
DX: Z95.2 Presence of prosthetic heart valve (principal)
CPT/HCPCS: 36415; 85610

== ENCOUNTER → 2020-04-24 11:42 | Outpatient (CLI) | payer MEDICARE, BC, SELFPAY ==
[2020-04-24 12:12] LABS: Cholesterol 108 mg/dL (140-199); HDL Cholesterol 42 mg/dL (40-60); LDL Cholesterol Calculated 54 mg/dL (<100); Triglycerides 62 mg/dL (35-150)
== END ==
PROVIDERS: Family Provider Internal Medicine Cardiovascular Disease; PCP Internal Medicine; Referring Provider Internal Medicine; Visit Provider Internal Medicine
DX: E78.2 Mixed hyperlipidemia (principal)
CPT/HCPCS: 36415; 80061

== ENCOUNTER → 2020-04-30 12:16 | Outpatient (CLI) | payer MEDICARE, BC, SELFPAY ==
[2020-04-30 12:45] LABS: INR 2.4 (0.9-1.3); Prothrombin Time 27.8 SECONDS (10.1-12.7)
== END ==
PROVIDERS: Family Provider Internal Medicine Cardiovascular Disease; PCP Internal Medicine; Referring Provider Physician Assistant; Visit Provider Physician Assistant
DX: Z95.2 Presence of prosthetic heart valve (principal)
CPT/HCPCS: 36415; 85610

== ENCOUNTER → 2020-05-12 11:32 | Outpatient (CLI) | payer MEDICARE, BC, SELFPAY ==
[2020-05-12 12:51] LABS: INR 2.2 (0.9-1.3); Prothrombin Time 25.3 SECONDS (10.1-12.7)
== END ==
PROVIDERS: Family Provider Internal Medicine Cardiovascular Disease; PCP Internal Medicine; Referring Provider Physician Assistant; Visit Provider Physician Assistant
DX: Z95.2 Presence of prosthetic heart valve (principal)
CPT/HCPCS: 36415; 85610

== ENCOUNTER → 2020-06-13 10:20 | Outpatient (CLI) | payer MEDICARE, BC, SELFPAY ==
[2020-06-13] MEDS: COVID-19 VACC #1, MRNA(MOD) 100 MCG/0.5 ML VIAL IM (10:30)
== END ==
PROVIDERS: Family Provider Internal Medicine Cardiovascular Disease; PCP Internal Medicine; Visit Provider Internal Medicine
DX: Z23 Encounter for immunization (principal)
CPT/HCPCS: 0011A; 91301

== ENCOUNTER 2020-06-24 10:55 | Emergency (ER) | payer MEDICARE, BC, SELFPAY ==
[2020-06-24] VITALS (9 sets, daily range): BP systolic 131–179; BP diastolic 68–86; PULSE 62–78; RESP 13–20; TEMP 36.8; O2SAT 99–100; BMI 25.4
--- NOTE | 2020-06-24 11:06 | DI.RAD.S_ITS ---
PROCEDURE: XR CHEST 1V INDICATIONS: chest pain TECHNIQUE: One view of the chest was acquired. COMPARISON: [facility], CR, XR CHEST 1V, 01/13/2018, 11:22. FINDINGS: Surgical changes and devices: Median sternotomy wires are present and appear intact. Changes of prior CABG. Lungs and pleura: Lungs are clear. No pleural effusions or pneumothorax. Mediastinum: Mediastinal contours appear normal. Heart size is normal. Bones and chest wall: No suspicious bony lesions. Overlying soft tissues appear unremarkable. IMPRESSION: No acute cardiopulmonary abnormalities or focal airspace disease. Dictated by: Samy Siddiqui M.D. on 06/24/2020 at 11:36 Approved by: Samy Siddiqui M.D. on 06/24/2020 at 11:37
--- NOTE | 2020-06-24 11:06 | ED.CHESTPAIN ---
HPI - Chest Pain General Chief Complaint: Chest Pain Stated Complaint: Chest Pain, Dizziness Time Seen by Provider: 06/24/20 11:05 Source: patient Mode of arrival: EMS Limitations: no limitations History of Present Illness HPI narrative: This is a 79-year-old gentleman who comes to the emergency department with complaint of 2 months of intermittent lightheadedness which he describes almost like the room moving and that his equilibrium is little bit off. He states it only occurs when he has been standing for prolonged period time, if he is seated it does not occur. He does not appreciated when he is exerting himself or walking around he states it will happen frequently in the morning. Today the episode did stop and he also developed a little bit of centralized chest pressure that was sharp, patient states it does not radiate. He states that the episode lasted 5-8 minutes. He took 1 nitro sublingual and aspirin 324 mg and we did for 10-15 minutes. He states he became sweaty after the nitro but states his symptoms all resolved quickly. He denies any shortness of breath, no nausea, no vomiting, no issues with bowel movements or urination. He denies any sensation of being lightheaded or passing out, patient denies any swelling in his extremities. He has a history significant for a bypass and aortic heart valve replacement on April 04, 2020. This was done at [facility] in [place]. Patient takes an aspirin 81 mg daily, metoprolol 12.5 mg b.i.d. as well as a statin each evening. He states prior surgeries include hernia repair, appendectomy and cardiac stent. He states that he has had some mild chest discomfort since his surgery but typically felt more like related to nerve pain from the CABG. He states this felt more centralized and different. Related Data Home Medications Medication Instructions Recorded Confirmed acetaminophen [Tylenol Extra 500 mg PO Q6HP PRN #0 12/28/16 12/27/19 Strength] aspirin 81 mg PO QPM #0 12/28/16 12/27/19 multivitamin [Multiple Vitamins] 1 tab PO QDAY #0 06/23/17 12/27/19 atorvastatin [Lipitor] 80 mg PO QDAY #0 09/06/17 12/27/19 clopidogrel 75 mg PO QDAY #0 09/06/17 12/27/19 loratadine [Claritin Liqui-Gel] 10 mg PO QDAYP PRN #0 09/06/17 12/27/19 metoprolol tartrate 12.5 mg PO BID #0 09/06/17 12/27/19 isosorbide mononitrate 30 mg 30 mg PO DAILY 03/28/19 12/27/19 tablet,extended release 24 hr nitroglycerin 0.4 mg sublingual 0.4 mg SL Q5M PRN 03/28/19 12/27/19 tablet Previous Rx's Medication Instructions Recorded oxycodone 5 mg PO Q6H PRN #25 tab 12/11/19 Allergies Allergy/AdvReac Type Severity Reaction Status Date / Time No Known Allergies Allergy Verified 06/24/20 11:00 Review of Systems Review of Systems ROS Unobtainable: All systems reviewed & are unremarkable except as noted in HPI and below Patient History Medical History (Updated 06/24/20 @ 11:39 by Carolyne Lin DO) Aortic stenosis Coronary artery disease Hx of coronary angiogram Hx of fracture of tibia Hyperlipidemia Hypertension Surgical History History of tonsillectomy and adenoidectomy Hx of appendectomy Hx of cataract surgery (10/04/17) Hx of heart artery stent (06/30/17) Hx of hernia repair (12/2016) Family History Father Heart disease Brother Heart disease Stroke Social History marital status: household members: spouse occupational status: previously employed Smoking Status: Never smoker alcohol intake: current substance use type: does not use Smoking Status: Never smoker alcohol intake frequency: 0-2 drinks per day Substance Use Type: does not use Exam Narrative Exam Narrative: GEN: well nourished, well appearing male, alert and oriented x 3, patient appears to be in mild distress. HEENT: Atraumatic, pupils are equal round reactive to light, extraocular movements are intact, nares are clear. HEART: Regular rate and rhythm without murmur, clicks, rubs. Pulses are equal in upper and lower extremities LUNGS:Lungs clear to auscultation, no wheezes, rales, crackles, chest moves symmetrically ABD:bowel sounds normal, soft, non-tender, no guarding, rebound, rigidity, no masses noted, no hepatosplenomegaly :No CVA tenderness MSCL: Non-tender, no muscle atrophy, muscles strength 5/5 upper and lower extremities, full range of motion NEURO:CN 2-12 intact, sensation normal SKIN: no rash, erythema or other skin changes noted. Healed midline incision consistent with CABG. Initial Vital Signs Initial Vital Signs: Vital Signs Temperature 98.3 F 06/24/20 10:55 Pulse Rate 78 06/24/20 10:55 Respiratory Rate 15 06/24/20 10:55 Blood Pressure 179/81 H 06/24/20 10:55 Pulse Oximetry 99 06/24/20 10:55 Course Orders Ordered: ED Orders 06/24/20 11:06 XR chest 1V Stat EKG-12 Lead Stat 06/24/20 11:12 Complete Blood Count AUTO DIFF Stat Comprehensive Metabolic Panel Stat Lipase Stat NT-proBNP (BNP-Adult 18+) Stat Partial Thromboplastin Time Stat Prothrombin Time INR Stat Troponin & CK Cardiac Panel Stat 06/24/20 13:18 Troponin I Stat Reevaluation(s) Reevaluation #1: Recheck patient asymptomatic. Reviewed labs, EKG and CXR. Time: 12:45 Consultations Consultation #1: Spoke with Dr. Ramos who is covering for Dr. Marte. Recommends short term follow up with cardiology and low threshold to return to ER. No additional medications changes/ect today. Reviewed labs, EKG findings and recent history. Time: 14:34 Vital Signs Vital signs: Vital Signs - 8 hr 06/24/20 10:55 06/24/20 11:00 06/24/20 11:36 Temperature 98.3 F Pulse Rate 78 71 Pulse Rate [Orthostatic Lying] 67 Pulse Rate [Orthostatic Sitting] 68 Pulse Rate [Orthostatic Standing] 70 Respiratory Rate 15 20 Blood Pressure 179/81 H 145/81 H Blood Pressure [Orthostatic Lying] 131/68 Blood Pressure [Orthostatic Sitting] 159/75 H Blood Pressure [Orthostatic Standing] 159/84 H Pulse Oximetry 99 100 06/24/20 12:00 06/24/20 13:00 06/24/20 13:07 Temperature Pulse Rate 62 66 66 Pulse Rate [Orthostatic Lying] Pulse Rate [Orthostatic Sitting] Pulse Rate [Orthostatic Standing] Respiratory Rate 14 16 13 Blood Pressure 131/72 140/70 Blood Pressure [Orthostatic Lying] Blood Pressure [Orthostatic Sitting] Blood Pressure [Orthostatic Standing] Pulse Oximetry 100 100 100 06/24/20 13:30 06/24/20 14:00 06/24/20 14:44 Temperature Pulse Rate 65 65 Pulse Rate [Orthostatic Lying] Pulse Rate [Orthostatic Sitting] Pulse Rate [Orthostatic Standing] Respiratory Rate Blood Pressure 173/86 H Blood Pressure [Orthostatic Lying] Blood Pressure [Orthostatic Sitting] Blood Pressure [Orthostatic Standing] Pulse Oximetry 100 100 MDM - Chest Pain Lab Data Result diagrams: 06/24/20 11:12 06/24/20 11:12 Labs: Lab Results 06/24/20 06/24/20 06/24/20 Range/Units 11:12 11:12 11:12 WBC 4.7 (4.5-11.0) X10^3/uL RBC 4.41 L (4.5-5.9) X10^6/uL Hgb 12.2 L (13.5-17.5) g/dL Hct 38.2 L (41-53) % MCV 86.7 (80-100) fL MCH 27.6 (26-34) PG MCHC 31.8 (30-36) % RDW 15.6 H (11.6-14.8) % Plt Count 170 (150-400) X10^3/uL Neut % (Auto) 74.2 (50-75) % Lymph % (Auto) 11.5 L (25-40) % Montgomery % (Auto) 12.0 (3-14) % Eos % (Auto) 1.5 L (2-4) % Baso % (Auto) 0.8 (0-2) % Neut # (Auto) 3500 (9779-1124) /uL Lymph # (Auto) 500 L (3259-6546) /uL Montgomery # (Auto) 600 (0-900) /uL Eos # (Auto) 100 (0-450) /uL Baso # (Auto) 0 (0-100) /uL PT 11.7 (10.1-12.7) SECONDS INR 1.0 (0.9-1.3) APTT 27 (26.4-36.2) SECONDS Sodium 136 L (137-145) mmol/L Potassium 4.2 (3.4-5.1) mmol/L Chloride 103 (98-107) mmol/L Carbon Dioxide 33 H (22-32) mmol/L BUN 16 (9-20) mg/dL Creatinine 0.87 (0.66-1.25) mg/dL Estimated GFR > 60.0 (>60) mL/min BUN/Creatinine Ratio 18.4 (6-22) Glucose 107 (80-110) mg/dL Calcium 8.9 (8.4-10.2) mg/dL Total Bilirubin 0.6 (0.2-1.3) mg/dL AST 28 (17-59) IU/L ALT 20 (<50) IU/L Alkaline Phosphatase 91 (38-126) U/L Total Creatine Kinase 61 (55-170) U/L CK-MB (CK-2) TNP CK-MB (CK-2) Rel Index TNP Troponin I < 0.012 (0.01-0.034) ng/mL NT-Pro-B Natriuret Pep (<450) pg/mL Total Protein 6.5 (6.3-8.2) g/dL Albumin 4.0 (3.5-5.0) g/dL Globulin 2.5 (1.7-4.1) g/dL Albumin/Globulin Ratio 1.6 (1.0-2.8) Lipase 106 (23-300) U/L 06/24/20 06/24/20 Range/Units 11:12 13:18 WBC (4.5-11.0) X10^3/uL RBC (4.5-5.9) X10^6/uL Hgb (13.5-17.5) g/dL Hct (41-53) % MCV (80-100) fL MCH (26-34) PG MCHC (30-36) % RDW (11.6-14.8) % Plt Count (150-400) X10^3/uL Neut % (Auto) (50-75) % Lymph % (Auto) (25-40) % Montgomery % (Auto) (3-14) % Eos % (Auto) (2-4) % Baso % (Auto) (0-2) % Neut # (Auto) (2869-9129) /uL Lymph # (Auto) (2317-2515) /uL Montgomery # (Auto) (0-900) /uL Eos # (Auto) (0-450) /uL Baso # (Auto) (0-100) /uL PT (10.1-12.7) SECONDS INR (0.9-1.3) APTT (26.4-36.2) SECONDS Sodium (137-145) mmol/L Potassium (3.4-5.1) mmol/L Chloride (98-107) mmol/L Carbon Dioxide (22-32) mmol/L BUN (9-20) mg/dL Creatinine (0.66-1.25) mg/dL Estimated GFR (>60) mL/min BUN/Creatinine Ratio (6-22) Glucose (80-110) mg/dL Calcium (8.4-10.2) mg/dL Total Bilirubin (0.2-1.3) mg/dL AST (17-59) IU/L ALT (<50) IU/L Alkaline Phosphatase (38-126) U/L Total Creatine Kinase (55-170) U/L CK-MB (CK-2) CK-MB (CK-2) Rel Index Troponin I < 0.012 (0.01-0.034) ng/mL NT-Pro-B Natriuret Pep 527 H (<450) pg/mL Total Protein (6.3-8.2) g/dL Albumin (3.5-5.0) g/dL Globulin (1.7-4.1) g/dL Albumin/Globulin Ratio (1.0-2.8) Lipase (23-300) U/L ECG Data Attestation: I personally reviewed and interpreted this ECG as follows: Prior ECG tracings: available for review Interpretation: Sinus rhythm ventricular premature complex, rate of 66 MA 153 QRS of 106 and QTC of 470. Nonspecific change, q wave in 1 and avL. Patient has prior EKG from 01/13/2018 which appears fairly similar. Patient does not have any acute ST elevation appreciated. EKG2. Sinus rhythm rate of 66 MA interval 196 QRS of 90 and QTC of 490. Nonspecific change. Prolonged QT. Also noted on prior EKG. Q-wave in 1 and aVL. Patient EKG appears similar to today's with the exception of PVC in V1-V3. MDM Narrative Medical decision making narrative: This is a 79-year-old male who comes with complaint of vertigo like symptoms and chest pain. Patient had both in conjunction today. Initial EKG does not show acute changes. Labs show mild anemia which is not surprising considering he had a bypass in March. Initial troponin is negative, BNP elevated at 520's but patient does not have any clear CHF type symptoms, negative CXR with no extremity swelling. EKG shows nonspecific change, repeat EKG and troponin show no new changes. Discussed patient's Cardiology team. They would like patient to follow up shortly and have a low threshold to return to the emergency department if recurrent symptoms. Discussed with patient and his . Discharge Plan Departure Patient Disposition: Home Clinical Impression: Dizziness, Chest pain Instructions: DI for Chest Pain Activity Restrictions/Additional Instructions: Follow up with you cardiology team this week, call for an appointment with Dr. Marte. Continue your home medications as prescribed. Return to the ER for recurrent symptoms, fevers, new or worsening chest pain, shortness of breath, lightheadedness or passing out, persistent vomiting, new swelling in your extremities or other new or concerning symptoms. Prescriptions: No Action aspirin 81 MG tablet,delayed release (DR/EC) 81 mg PO QPM Qty: 0 RF: 0 acetaminophen [Tylenol Extra Strength] 500 MG tablet 500 mg PO Q6HP PRN (Reason: Pain) Qty: 0 RF: 0 multivitamin [Multiple Vitamins] 1 EACH tablet 1 tab PO QDAY Qty: 0 RF: 0 metoprolol tartrate 25 MG tablet 12.5 mg PO BID Qty: 0 RF: 0 atorvastatin [Lipitor] 80 MG tablet 80 mg PO QDAY Qty: 0 RF: 0 clopidogrel 75 MG tablet 75 mg PO QDAY Qty: 0 RF: 0 loratadine [Claritin Liqui-Gel] 10 MG capsule 10 mg PO QDAYP PRN (Reason: Seasonal allergies) Qty: 0 RF: 0 isosorbide mononitrate 30 mg tablet extended release 24 hr 30 mg PO DAILY RF: 0 nitroglycerin 0.4 mg tablet, sublingual 0.4 mg SL Q5M PRN (Reason: Chest Pain) RF: 0 oxycodone 5 mg tablet 5 mg PO Q6H PRN (Reason: pain) Qty: 25 RF: 0 Referrals: Dionicio Marte MD [Family Provider] - Corbin Garcia MD [Primary Care Provider] -
--- NOTE | 2020-06-24 11:10 | PC.NURSE ---
Pt recently had bypass sx. He was doing the dishes this morning and started to experience substernal CP and dizziness. Pt took 324 asp and 1 nitro and pain is now resolved
[2020-06-24 11:20] LABS: Add Manual Diff / Slide Review NO; Basophils Absolute Auto 0 /uL (0-100); Basophils Percent Auto 0.8 % (0-2); Eosinophils Absolute Auto 100 /uL (0-450); Eosinophils Percent Auto 1.5 % (2-4); Hematocrit 38.2 % (41-53); Hemoglobin 12.2 g/dL (13.5-17.5); Lymphocytes Absolute Auto 500 /uL (1100-4500); Lymphocytes Percent Auto 11.5 % (25-40); Mean Corpuscular HGB Conc 31.8 % (30-36); Mean Corpuscular Hemoglobin 27.6 PG (26-34); Mean Corpuscular Volume 86.7 fL (80-100); Monocytes Absolute Auto 600 /uL (0-900); Neutrophils Absolute Auto 3500 /uL (1500-7000); Neutrophils Percent Auto 74.2 % (50-75); Platelet Count 170 X10^3/uL (150-400); Red Blood Cell Count 4.41 X10^6/uL (4.5-5.9); Red Cell Distribution Width 15.6 % (11.6-14.8); White Blood Cell Count 4.7 X10^3/uL (4.5-11.0)
[2020-06-24 11:26] LABS: Prothrombin Time 11.7 SECONDS (10.1-12.7)
[2020-06-24 11:29] LABS: PTT Partial Thromboplastin Tim 27 SECONDS (26.4-36.2)
[2020-06-24 11:31] LABS: Alanine Aminotransferase 20 IU/L (<50); Albumin Globulin Ratio 1.6 (1.0-2.8); Alkaline Phosphatase 91 U/L (38-126); Aspartate Aminotransferase 28 IU/L (17-59); BUN Creatinine Ratio 18.4 (6-22); Bilirubin Total 0.6 mg/dL (0.2-1.3); Blood Urea Nitrogen 16 mg/dL (9-20); Calcium 8.9 mg/dL (8.4-10.2); Carbon Dioxide 33 mmol/L (22-32); Chloride 103 mmol/L (98-107); Creatine Kinase 61 U/L (55-170); Estimated Glomerular Filt Rate > 60.0 mL/min (>60); Globulin 2.5 g/dL (1.7-4.1); Glucose 107 mg/dL (80-110); HEMOLYSIS < 15 (0-50); Lipase 106 U/L (23-300); Potassium 4.2 mmol/L (3.4-5.1); Sodium 136 mmol/L (137-145); Total Protein 6.5 g/dL (6.3-8.2)
--- NOTE | 2020-06-24 11:37 | PC.NURSE ---
No dizziness with position change
[2020-06-24 11:43] LABS: Troponin I < 0.012 ng/mL (0.01-0.034)
[2020-06-24 11:52] LABS: NT-proBNP (BNP-Adult 18+) 527 pg/mL (<450)
[2020-06-24 13:52] LABS: Troponin I < 0.012 ng/mL (0.01-0.034)
== END 2020-06-24 14:46 | disposition home or self-care (01) ==
PROVIDERS: Emergency Provider Emergency Medicine; Family Provider Internal Medicine Cardiovascular Disease; PCP Internal Medicine
DX: R07.9 Chest pain, unspecified (principal); I10 Essential (primary) hypertension; R42 Dizziness and giddiness; Z95.2 Presence of prosthetic heart valve; E78.5 Hyperlipidemia, unspecified; D64.9 Anemia, unspecified; I25.10 Atherosclerotic heart disease of native coronary artery without angina pectoris
CPT/HCPCS: 36415; 71045; 80053; 82550; 83690; 83880; 84484; 85025; 85610; 85730; 93005; 93010; 99283; 99284

== ENCOUNTER → 2020-07-11 10:49 | Outpatient (CLI) | payer MEDICARE, BC, SELFPAY ==
[2020-07-11] MEDS: COVID-19 VACC #2, MRNA(MOD) 100 MCG/0.5 ML VIAL IM (10:52)
== END ==
PROVIDERS: Family Provider Internal Medicine Cardiovascular Disease; PCP Internal Medicine; Visit Provider Internal Medicine
DX: Z23 Encounter for immunization (principal)
CPT/HCPCS: 0012A; 91301

== ENCOUNTER 2020-07-30 10:30 | Outpatient (RCR) | payer MEDICARE, BC, SELFPAY | END 2020-07-30 12:30 | LOC: CAR 10:30 | PROVIDERS: Family Provider Internal Medicine Cardiovascular Disease; PCP Internal Medicine; Referring Provider Thoracic Surgery (Cardiothoracic Vascular Surgery); Visit Provider Thoracic Surgery (Cardiothoracic Vascular Surgery) | DX: Z95.1 Presence of aortocoronary bypass graft (principal); Z95.2 Presence of prosthetic heart valve | CPT/HCPCS: 93798 ==

== ENCOUNTER 2021-03-11 11:15 | Outpatient (RCR) | payer MEDICARE, BC, SELFPAY ==
--- NOTE | 2021-03-09 15:33 | PT.OIE ---
Current Diagnoses Benign paroxysmal vertigo, bilateral (03/09/21) Dizziness and giddiness (03/09/21) Past Medical History (Last Reviewed 06/24/20 @ 11:31 by Carolyne Lin DO) Aortic stenosis Coronary artery disease History of tonsillectomy and adenoidectomy Hx of appendectomy Hx of cataract surgery (10/04/17) Hx of coronary angiogram Hx of fracture of tibia Hx of heart artery stent (06/30/17) Hx of hernia repair (12/2016) Hyperlipidemia Hypertension Past Surgical History (Last Reviewed 06/24/20 @ 11:31 by Carolyne Lin DO) History of tonsillectomy and adenoidectomy Hx of appendectomy Hx of cataract surgery (10/04/17) Hx of heart artery stent (06/30/17) Hx of hernia repair (12/2016) Visit Care Team Role Provider Type Corbin Garcia MD Attending Provider Physician Family Provider Primary Care Provider Referring Provider Specialty: Internal Medicine Address: [address] [place] [address], [facility] Email: [email or web address] Physical Therapy Initial Evaluation PT-OP-A Visit Information Start: 03/09/21 11:49 Freq: Status: Active Protocol: Document 03/09/21 11:15 DCW (Rec: 03/09/21 11:51 DCW [id number]) Out-Patient Physical Therapy Visit Information Visit Information Visit Type Initial Evaluation Visit Start Time 11:15 Visit Stop Time 11:50 Total Visit Minutes 35 Visit Number 1 Number of [employer] Visits 0 Evaluation Information Evaluation Date 03/09/21 PT-OP-B Current Condition Start: 03/09/21 11:49 Freq: Status: Active Protocol: Document 03/09/21 11:15 DCW (Rec: 03/09/21 11:56 DCW [id number]) Current Condition History of Current Condition Onset Date 6 months Current Complaints Position-dependent dizziness History of Current Condition Pt is a 80 year old male complaining of a six month history of motion-induced vertigo and imbalance. Pt reports episodes last less than a minute. Symptoms are provoked by bending over, bringing head up from bending over. Also notes occasional drifting to the left when walking. Pt denies recent hearing changes, diplopia, dysarthria, discoordination, or decreased mentation/ consciousness. Pt reports symptoms are waxing/waning in nature. Pt denies hx of HTN, hyperlipidemia, diabetes, head trauma, seizure, migraines, CVA, anxiety/panic disorders, depression, or excessive smoking or drinking. 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 Pt notes that he had an Bao maneuver from his PCP in the past, which helped a lot, but not completely. Treatment Goals Patient/Caregiver Goals To find out the best way to control his dizziness PT-OP-C Subjective Start: 03/09/21 11:49 Freq: Status: Active Protocol: Document 03/09/21 11:15 DCW (Rec: 03/09/21 11:56 DCW [id number]) OP-PT Subjective Patient Comments Patient Comments I've had some left eye twitching recently too, but I don't know if the two things are related. Patient Questionnaires Dizziness Handicap Inventory DHI Score 14% DHI Functional Impairment 1 to 19% Impaired (Score 1-19) OP-PT Pain Assessment Pain Assessment Grid Paper Pain Assessment Grid Completed No: pain PT-OP-O Vestibular Start: 03/09/21 11:49 Freq: Status: Active Protocol: Document 03/09/21 11:15 DCW (Rec: 03/09/21 11:58 DCW [id number]) Vestibular Assessment Screening Tests Vestibular Artery Screen Negative Sharp-Catalino Test Negative Auditory Tests Harvey Test Within normal limits Rinne Test Negative Air Conduction Results Equal Visual Testing Smooth Pursuits Horizontal WNL Smooth Pursuits Vertical WNL Saccades Horizontal WNL Saccades Vertical WNL Gaze Evoked Nystagmus With Fixation Negative Gaze Evoked Nystagmus Without Fixation Negative Heave Test Positive Bilateral Thrust Head Positive Bilateral Head Shake Negative Spontaneous Nystagmus Negative Positional Testing [place]-Hallpike Negative Left,Negative Right Rolling Test Negative Left,Negative Right PT-OP-Q Treatments Start: 03/09/21 11:49 Freq: Status: Active Protocol: Document 03/09/21 11:15 DCW (Rec: 03/09/21 11:58 DCW [id number]) Canalithic Repositioning BPPV Treatment Bao Affected Canal(s) L Posterior? 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 STG Duration 04/09/21 Assessment Summary Assessment Pt's vestibular examination today was largely negative. Only positive testing was bilateral positive head impulse testing, which is typically indicative of age- related vestibular hypofunction. Pt's subjective history, however, is somewhat suggestive of BPPV, and additionally pt has reportedly been helped in the past by an Bao maneuver. Since false negative are faily common with BPPV, due to his symptoms, a left-sided Bao maneuver was performed in hopes to improve or completely eliminate symptoms. Pt was educated on BPPV, expectations for treatment, possible recurrence (BPPV has a ~50% recurrence rate in the five years following treatment), and post -Bao restrictions. Pt to return within 1 week for a follow-up appointment, and intermittently afterward as indicated for treatment of possible BPPV. Physical Therapy Plan Frequency and Duration Frequency of Treatment 2x/Week Duration of Treatment One month Plan of Care Start Date 03/09/21 Plan of Care End Date 04/09/21 Next Visit Focus/Plan Next Note Type Treatment Note Next Visit Plan Positional testing, CRM as indicated, further vestibular testing if needed.
--- NOTE | 2021-03-09 15:34 | PT.OPPOC ---
Physical, Occupational & Speech Therapy At [facility] Current Diagnoses Benign paroxysmal vertigo, bilateral (03/09/21) Dizziness and giddiness (03/09/21) Visit Care Team Role Provider Type Corbin Garcia MD Attending Provider Physician Family Provider Primary Care Provider Referring Provider Specialty: Internal Medicine Address: [address] [place] [address], [facility] Email: [email or web address] Plan Of Care PT-OP-T Assessment and Plan Start: 03/09/21 11:49 Freq: Status: Active Protocol: Document 03/09/21 11:15 DCW (Rec: 03/09/21 15:33 DCW [id number]) Physical Therapy Assessment Rehab Potential Rehabilitation Potential Excellent Evaluation Complexity Number of Personal Factors/Comorbidities 1-2 Number of Body Systems Impaired 1-2 Clinical Presentation at Evaluation Unstable Impairments Impairments Balance,Coordination, Vestibular Goals One Impairment Pt experiences vertigo when changing positions in his workshop Short Term Goal (STG) Pt to perform position changes in his workshop and all bed mobilty without experiencing symptoms of vertigo. STG Duration 04/09/21 Assessment Summary Assessment Pt's vestibular examination today was largely negative. Only positive testing was bilateral positive head impulse testing, which is typically indicative of age- related vestibular hypofunction. Pt's subjective history, however, is somewhat suggestive of BPPV, and additionally pt has reportedly been helped in the past by an Bao maneuver. Since false negative are faily common with BPPV, due to his symptoms, a left-sided Bao maneuver was performed in hopes to improve or completely eliminate symptoms. Pt was educated on BPPV, expectations for treatment, possible recurrence (BPPV has a ~50% recurrence rate in the five years following treatment), and post -Bao restrictions. Pt to return within 1 week for a follow-up appointment, and intermittently afterward as indicated for treatment of possible BPPV. Physical Therapy Plan Frequency and Duration Frequency of Treatment 2x/Week Duration of Treatment One month Plan of Care Start Date 03/09/21 Plan of Care End Date 04/09/21 Next Visit Focus/Plan Next Note Type Treatment Note Next Visit Plan Positional testing, CRM as indicated, further vestibular testing if needed. Plan of Care Dates Plan of Care Start Date 03/09/21 Plan of Care End Date 04/09/21 Electronically Signed by: Bryan Pa, PT 03/09/21 1254 Please Sign and Return: I have reviewed this Plan of Care and certify that the skilled therapy services above are required to meet the patient?s needs. Physician Signature Date Printed Name and Credentials Clinical Instructor Signature Printed Name and Credentials
--- NOTE | 2021-03-11 11:50 | PT.OIE ---
Current Diagnoses Benign paroxysmal vertigo, bilateral (03/11/21) Dizziness and giddiness (03/11/21) Past Medical History (Last Reviewed 06/24/20 @ 11:31 by Carolyne Lin DO) Aortic stenosis Coronary artery disease History of tonsillectomy and adenoidectomy Hx of appendectomy Hx of cataract surgery (10/04/17) Hx of coronary angiogram Hx of fracture of tibia Hx of heart artery stent (06/30/17) Hx of hernia repair (12/2016) Hyperlipidemia Hypertension Past Surgical History (Last Reviewed 06/24/20 @ 11:31 by Carolyne Lin DO) History of tonsillectomy and adenoidectomy Hx of appendectomy Hx of cataract surgery (10/04/17) Hx of heart artery stent (06/30/17) Hx of hernia repair (12/2016) Visit Care Team Role Provider Type Corbin Garcia MD Attending Provider Physician Family Provider Primary Care Provider Referring Provider Specialty: Internal Medicine Address: [address] [place] [address] Email: [email or web address] Physical Therapy Initial Evaluation PT-OP-A Visit Information Start: 03/09/21 11:49 Freq: Status: Active Protocol: Document 03/11/21 11:15 DCW (Rec: 03/11/21 11:49 DCW [id number]) Out-Patient Physical Therapy Visit Information Visit Information Visit Type Treatment Note Visit Start Time 11:15 Visit Stop Time 11:45 Total Visit Minutes 30 Visit Number 2 Number of CALENDER WIND UP HELPER Visits 0 Evaluation Information Evaluation Date 03/09/21 PT-OP-B Current Condition Start: 03/09/21 11:49 Freq: Status: Active Protocol: Document 03/09/21 11:15 DCW (Rec: 03/09/21 11:56 DCW [id number]) Current Condition History of Current Condition Onset Date 6 months Current Complaints Position-dependent dizziness History of Current Condition Pt is a 80 year old male complaining of a six month history of motion-induced vertigo and imbalance. Pt reports episodes last less than a minute. Symptoms are provoked by bending over, bringing head up from bending over. Also notes occasional drifting to the left when walking. Pt denies recent hearing changes, diplopia, dysarthria, discoordination, or decreased mentation/ consciousness. Pt reports symptoms are waxing/waning in nature. Pt denies hx of HTN, hyperlipidemia, diabetes, head trauma, seizure, migraines, CVA, anxiety/panic disorders, depression, or excessive smoking or drinking. 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 Pt notes that he had an Bao maneuver from his PCP in the past, which helped a lot, but not completely. Treatment Goals Patient/Caregiver Goals To find out the best way to control his dizziness PT-OP-C Subjective Start: 03/09/21 11:49 Freq: Status: Active Protocol: Document 03/11/21 11:15 DCW (Rec: 03/11/21 11:49 DCW [id number]) OP-PT Subjective Patient Comments Patient Comments Yesterday was a little wobbly . PT-OP-O Vestibular Start: 03/09/21 11:49 Freq: Status: Active Protocol: Document 03/11/21 11:15 DCW (Rec: 03/11/21 11:49 DCW [id number]) Vestibular Assessment Visual Testing Cover/Uncover Test WNL Jase String Test WNL Convergence Test WNL DVA (Line Degradation) 2 Positional Testing [place] Negative Left,Negative Right Rolling Test Negative Left,Negative Right PT-OP-Q Treatments Start: 03/09/21 11:49 Freq: Status: Active Protocol: Document 03/11/21 11:15 DCW (Rec: 03/11/21 11:49 DCW [id number]) Manual Therapy Treatment Other Other Manual Treatments Testing PT-OP-T Assessment and Plan Start: 03/09/21 11:49 Freq: Status: Active Protocol: Document 03/11/21 11:15 DCW (Rec: 03/11/21 11:49 DCW [id number]) Physical Therapy Assessment Impairments Impairments Balance,Coordination, Vestibular Goals One Impairment Pt experiences vertigo when changing positions in his workshop Short Term Goal (STG) Pt to perform position changes in his workshop and all bed mobility without experiencing symptoms of vertigo. STG Duration 04/09/21 Assessment Summary Assessment Vestibular testing continues to be negative, Orthostatic BP measures went from 120/76 supine to 118/70 standing, no indications for orthostatic hypotension. No indication of vestibular dysfunction at this time, pt unlikely to benefit from further skilled therapy, and will be discharged. Physical Therapy Plan Frequency and Duration Frequency of Treatment 2x/Week Duration of Treatment One month Plan of Care Start Date 03/09/21 Plan of Care End Date 04/09/21 Discharge Physical Therapy Discharge Comments No further skilled vestibular rehab indicated Next Visit Focus/Plan Next Note Type Discharge Summary
== END 2021-03-26 13:05 ==
LOC: PHYS 11:15
PROVIDERS: Family Provider Internal Medicine; PCP Internal Medicine; Referring Provider Internal Medicine; Visit Provider Internal Medicine
DX: H81.13 Benign paroxysmal vertigo, bilateral (principal)
CPT/HCPCS: 95992; 97140; 97161

== ENCOUNTER → 2021-10-05 16:08 | Outpatient (CLI) | payer MEDICARE, BC, SELFPAY ==
[2021-10-05 17:15] LABS: Hematocrit 39.2 % (41-53); Hemoglobin 13.5 g/dL (13.5-17.5); Mean Corpuscular HGB Conc 34.5 % (30-36); Mean Corpuscular Hemoglobin 31.5 PG (26-34); Mean Corpuscular Volume 91.3 fL (80-100); Red Cell Distribution Width 13.4 % (11.6-14.8); White Blood Cell Count 6.7 X10^3/uL (4.5-11.0)
[2021-10-05 17:20] LABS: Alanine Aminotransferase 21 IU/L (<50); Albumin 4.4 g/dL (3.5-5.0); Albumin Globulin Ratio 1.8 (1.0-2.8); Alkaline Phosphatase 83 U/L (38-126); Aspartate Aminotransferase 33 IU/L (17-59); BUN Creatinine Ratio 28.4 (6-22); Bilirubin Total 0.7 mg/dL (0.2-1.3); Blood Urea Nitrogen 25 mg/dL (9-20); Carbon Dioxide 27 mmol/L (22-32); Chloride 104 mmol/L (98-107); Cholesterol 130 mg/dL (140-199); Estimated Glomerular Filt Rate > 60 mL/min (>60); Globulin 2.4 g/dL (1.7-4.1); Glucose 93 mg/dL (80-110); HDL Cholesterol 65 mg/dL (40-60); HEMOLYSIS 20 (0-50); LDL Cholesterol Calculated 50 mg/dL (<100); Potassium 4.4 mmol/L (3.4-5.1); Sodium 135 mmol/L (137-145); Total Protein 6.8 g/dL (6.3-8.2); Triglycerides 73 mg/dL (35-150)
[2021-10-05 17:50] LABS: Prostate Specific Antigen 1.11 ng/mL (0.10-4.00)
[2021-10-05 17:51] LABS: TSH w/ Reflex to FT4 2.13 uIU/mL (0.47-4.68)
== END ==
PROVIDERS: Family Provider Internal Medicine; PCP Internal Medicine; Referring Provider Internal Medicine; Visit Provider Internal Medicine
DX: E78.2 Mixed hyperlipidemia (principal); I10 Essential (primary) hypertension; I25.708 Atherosclerosis of coronary artery bypass graft(s), unspecified, with other forms of angina pectoris; N40.0 Benign prostatic hyperplasia without lower urinary tract symptoms; K43.9 Ventral hernia without obstruction or gangrene
CPT/HCPCS: 36415; 80053; 80061; 84153; 84443; 85027; 99214